=== PATIENT | female | born 1995 | race Caucasian/White ===

== ENCOUNTER 2018-03-06 05:53 | Observation (INO) | payer OTHER, SELFPAY ==
[2018-03-06] VITALS (20 sets, daily range): BP systolic 104–155; BP diastolic 63–105; PULSE 16–145; RESP 9–24; TEMP 36.2–36.9; O2SAT 93–100; BMI 45.8
--- NOTE | 2018-03-06 | PATH_ITS ---
[facility] Accession Number: [id number] . 01 Material submitted: . GALLBLADDER . 02 Diagnosis: Gallbladder: Cholelithiasis with associated chronic cholecystitis and cholesterolosis. Benign reactive lymph node. [facility]/03/10/2018 . 02 Electronically signed: . Miguel Ángel Alcala MD, Pathologist NPI- [id number] . 01 Gross description: . Received in formalin, labeled gallbladder, is an intact gallbladder (length-7.6 cm, diameter-2.2 cm) with a purple-pink smooth and shiny serosa and a patent cystic duct. A lymph node (0.8 x 0.7 x 0.6 cm) is identified. The lumen contains green gelatinous bile and one green-yellow smooth and solid calculus (1.6 x 1.3 x 1.2 cm) with an janes crystalline cut surface. The mucosa is spence-yellow and semi-velvety. The wall is up to 0.2 cm thick. No nodules, masses or lesions are identified. Section code: (A1) cystic duct resection margin and two serial sections from the body; (A2) two longitudinal sections from the fundus; (A3) one bisected lymph node. ([id number]) /[facility] . 02 Pathologist provided ICD-10: K80.64 . 02 CPT . 916977 Performed at: 01 [facility] [address], [place], [place] [id number] MD Wilver Zazueta MD Phone: [phone] Performed at: 02 [facility] [address] [place], [place] [id number] MD Sloan Maciel MD Phone: [phone]
--- NOTE | 2018-03-06 06:20 | ED.ABDPAIN ---
HPI - Abdominal Pain General Chief Complaint: Abdominal Pain Stated Complaint: MIDDLE STOMACH PAIN' Time Seen by Provider: 03/06/18 06:09 Source: patient and family Mode of arrival: ambulatory Limitations: no limitations History of Present Illness HPI narrative: Patient is a 22-year-old female presents with epigastric pain. All the it started about 1:00 a.m. quite severe she has taken Tums and Tylenol without any relief. She has had episodes of pain off and on for the last couple of years no and has been able to figure out what it is. She feels nauseated she is pacing the room and appears in pain. She says the pain radiates around both sides and up to her shoulders. Sometimes into her chest. This is the worst that it has ever been. She had hamburgers last night for dinner. Location: epigastric Radiation: chest Related Data Allergies Allergy/AdvReac Type Severity Reaction Status Date / Time No Known Drug Allergies Allergy Verified 03/06/18 07:17 Review of Systems Review of Systems All systems reviewed & are unremarkable except as noted in HPI and below Constitutional Denies chills, Denies fever(s), Denies lethargy and Denies weakness Cardiovascular Reports chest pain, Denies irregular heart rhythm, Denies lightheadedness, Denies palpitations, Denies dyspnea, Denies dyspnea on exertion and Denies orthopnea Respiratory Denies cough, Denies dyspnea, Denies dyspnea on exertion and Denies wheezing Gastrointestinal Gastrointestinal: Reports system reviewed and no additional complaints, except as docu Musculoskeletal Denies back pain, Denies muscle weakness, Denies numbness and Denies tingling Integumentary/Breasts Denies pruritus, Denies erythema, Denies rash and Denies wounds Neurologic Denies numbness, Denies tingling and Denies weakness Endocrine Denies palpitations Allergic/Immunologic Denies wheezing PFSH Social History Smoking Status: Never smoker Exam Initial Vital Signs Initial Vital Signs: Vital Signs Temperature 97.5 F L 03/06/18 06:01 Pulse Rate 16 L 03/06/18 06:01 Respiratory Rate 17 03/06/18 06:01 Blood Pressure 155/105 H 03/06/18 06:01 Pulse Oximetry 100 03/06/18 06:01 Const General: acute distress (In pain) Nutritional Appearance: obese Chest Chest: normal inspection of the chest Resp Effort & Inspection: normal respiratory effort, able to speak in complete sentences, no respiratory distress and no use of accessory muscles Auscultation: clear to auscultation bilaterally, no rales, no rhonchi and no wheezes Cardio Rate: regular rate Rhythm: regular rhythm Heart Sounds: no click, no gallops, no murmurs and no rubs Pulses: normal peripheral pulses GI Palpation: soft, tender (Right upper quadrant pain without guarding or rebound) and other Percussion: normal to percussion Auscultation: normal bowel sounds General: No CVA tenderness Skin General: no rashes or lesions noted, No jaundice and No petechiae Neuro General: alert, oriented x3, gait normal and no focal motor deficits Cranial Nerves: CN's II-XI intact bilaterally Speech: speech normal Motor: strength 5/5 throughout Sensory Exam: no sensory deficits noted Course Hospital Course: Pain is much better controlled after Toradol. She is resting comfortably. Orders Ordered: ED Orders 03/06/18 06:15 Urinalysis and Microscopic Stat 03/06/18 06:26 US abdomen complete Stat 03/06/18 06:34 Complete Blood Count AUTO DIFF Stat Comprehensive Metabolic Panel Stat Lipase Stat Discontinued Medications Ketorolac Tromethamine (Toradol) 30 mg IV NOW ONE Stop: 03/06/18 06:26 Last Admin: 03/06/18 06:40 Dose: 30 mg Ondansetron HCl (Zofran) 4 mg IV NOW ONE Stop: 03/06/18 06:26 Last Admin: 03/06/18 06:39 Dose: 4 mg Vital Signs - 8 hr 03/06/18 06:01 03/06/18 06:21 Temperature 97.5 F L 97.5 F L Pulse Rate 16 L 16 L Respiratory Rate 17 17 Blood Pressure 155/105 H 155/105 H Pulse Oximetry 100 100 MDM - Abdominal Pain Lab Data Result diagrams: 03/06/18 06:34 03/06/18 06:34 Lab Results 03/06/18 03/06/18 03/06/18 Range/Units 06:15 06:34 06:34 WBC 11.1 H (4.5-11.0) X10^3/uL RBC 5.20 (4.0-5.2) X10^6/uL Hgb 14.9 (12.0-16.0) g/dL Hct 43.1 (36-46) % MCV 83.0 (80-100) fL MCH 28.7 (26-34) PG MCHC 34.6 (30-36) % RDW 13.5 (11.6-14.8) % Plt Count 285 (150-400) X10^3/uL Neut % (Auto) 71.8 (50-75) % Lymph % (Auto) 21.3 L (25-40) % [place] % (Auto) 5.7 (3-14) % Eos % (Auto) 0.8 L (2-4) % Baso % (Auto) 0.4 (0-2) % Neut # (Auto) 8000 H (5525-5533) /uL Sodium 142 (137-145) mmol/L Potassium 3.5 (3.4-5.1) mmol/L Chloride 101.0 (98-107) mmol/L Carbon Dioxide 27.0 (22-32) mmol/L BUN 8.0 (7-17) mg/dL Creatinine 0.80 (0.52-1.04) mg/dL Estimated GFR > 60.0 (>60) mL/min BUN/Creatinine Ratio 10.0 (6-22) Glucose 110 H (70-100) mg/dL Calcium 10.0 (8.4-10.2) mg/dL Total Bilirubin 0.5 (0.2-1.3) mg/dL AST 24 (14-36) IU/L ALT 41 (9-52) IU/L Alkaline Phosphatase 72 (38-126) U/L Total Protein 7.7 (6.3-8.2) g/dL Albumin 4.5 (3.5-5.0) g/dL Globulin 3.2 (1.7-4.1) g/dL Albumin/Globulin Ratio 1.4 (1.0-2.8) Lipase 79 (23-300) U/L Urine Color Yellow Urine Appearance Clear Urine pH 6.5 (4.5-8.0) Ur Specific [place] 1.020 (1.000-1.035) Urine Protein Negative (Negative) Urine Glucose (UA) Negative (Normal) g/dL Urine Ketones Negative (NEGATIVE) Urine Occult Blood 1+ H (Negative) Urine Nitrate Negative (NEGATIVE) Urine Bilirubin Negative (NEGATIVE) Urine Urobilinogen 0.2 (0.2) E.U./dL Ur Leukocyte Esterase Negative (NEGATIVE) Urine RBC 1-5/hpf (0-5/HPF) Ur Culture Indicated? Cult not indicated Micro UA Comment Not Reportable MDM Narrative Medical decision making narrative: She has no leukocytosis elevated bilirubin or enzymes. She is noted to have gallstones in the neck. Initially on wanted to go home with pain medication and follow up with surgery as outpatient. However she made arrangements on and is now willing and able to stay. Dr. Pearce aware checking surgery schedule. Discharge Plan Departure Patient Disposition: Admitted as Observation Clinical Impression: Cholelithiasis
--- NOTE | 2018-03-06 06:26 | DI.US.S_ITS ---
PROCEDURE: US ABDOMEN INDICATIONS: RUQ pain TECHNIQUE: Real-time focused scanning was performed of the abdomen, with image documentation. COMPARISON: None. FINDINGS: Liver: Liver is normal in size. Liver has a diffusely increased echotexture which typically represents fatty infiltration; however, finding is nonspecific and other etiologies including hepatic cirrhosis can have a similar appearance. Please correlate with clinical and laboratory findings. Gallbladder: Multiple large gallstones are noted. No gallbladder wall thickening. Gallbladder wall measures 2.0 mm. No pericholecystic fluid. Positive sonographic Acosta sign noted. Common bile duct is at the upper limits of normal measuring 6.3 mm in diameter. Pancreas: Sonographically normal. Spleen: Normal in size and echotexture. Kidneys: Right kidney measures 9.7 cm and left kidney measures 10.6 cm in longitudinal axis. Kidneys are sonographically normal without evidence of hydronephrosis or nephrolithiasis. Aorta: Normal in caliber. Common iliacs: Normal in caliber. IVC: Patent. IMPRESSION: 1. Cholelithiasis with positive sonographic Acosta's sign. Early manifestation of cholecystitis cannot be excluded. 2. Echogenic liver. Finding typically represents fatty infiltration; however, finding is nonspecific and correlation with clinical and laboratory findings is recommended to exclude other etiologies including hepatic cirrhosis. Dictated by: Jenni Castañeda MD, PhD on 03/06/2018 at 9:03 Approved by: Jenni Castañeda MD, PhD on 03/06/2018 at 9:06
[2018-03-06 06:33] LABS: Appearance Urine UA CLEAR; Bilirubin Urine UA NEGATIVE (NEGATIVE); Color Urine UA YELLOW; Glucose Urine UA NEGATIVE (Normal); Ketones Urine UA NEGATIVE (NEGATIVE); Leukocyte Esterase Urine UA NEGATIVE (NEGATIVE); Nitrite Urine UA NEGATIVE (NEGATIVE); Occult Blood Urine UA 1+ (Negative); Protein Urine UA NEGATIVE (Negative); Urobilinogen Urine UA 0.2 E.U./dL (0.2); pH Urine UA 6.5 (4.5-8.0)
[2018-03-06] MEDS: ONDANSETRON 4 MG/2 ML INJ IV (06:39)
[2018-03-06] MEDS: KETOROLAC 60 MG/2 ML VIAL 30 MG IV (06:40)
[2018-03-06 06:47] LABS: Culture Indicated Urine Cult Not Indicated; RBC Urine 1-5/HPF (0-5/HPF)
[2018-03-06 06:52] LABS: Add Manual Diff / Slide Review NO; Basophils Percent Auto 0.4 % (0-2); Eosinophils Percent Auto 0.8 % (2-4); Hematocrit 43.1 % (36-46); Hemoglobin 14.9 g/dL (12.0-16.0); Lymphocytes Percent Auto 21.3 % (25-40); Mean Corpuscular HGB Conc 34.6 % (30-36); Mean Corpuscular Hemoglobin 28.7 PG (26-34); Monocytes Percent Auto 5.7 % (3-14); Neutrophils Absolute Auto 8000 /uL (3000-5900); Neutrophils Percent Auto 71.8 % (50-75); Platelet Count 285 X10^3/uL (150-400); Red Cell Distribution Width 13.5 % (11.6-14.8); White Blood Cell Count 11.1 X10^3/uL (4.5-11.0)
[2018-03-06 06:55] LABS: Alanine Aminotransferase 41 IU/L (9-52); Albumin 4.5 g/dL (3.5-5.0); Albumin Globulin Ratio 1.4 (1.0-2.8); Alkaline Phosphatase 72 U/L (38-126); Aspartate Aminotransferase 24 IU/L (14-36); Bilirubin Total 0.5 mg/dL (0.2-1.3); Estimated Glomerular Filt Rate > 60.0 mL/min (>60); Globulin 3.2 g/dL (1.7-4.1); Glucose 110 mg/dL (70-100); HEMOLYSIS < 15 (0-50); Lipase 79 U/L (23-300); Potassium 3.5 mmol/L (3.4-5.1); Sodium 142 mmol/L (137-145); Total Protein 7.7 g/dL (6.3-8.2)
[2018-03-06] MEDS: SODIUM CHLORIDE 0.9% 1,000 ML 125 ML IV (10:21)
--- NOTE | 2018-03-06 10:43 | PC.NURSE ---
ADMISSION NOTE: PT WHEELCHAIRED OVER FROM ED WITH SPOUSE, KASEY IN ATTENDANCE- VSS, AFEBRILE, ALERT/ORIENTED AND ANXIOUS- BOTH HAD MANY QUESTIONS AND ANSWERED THEM ALL TO THE BEST OF MY ABILITY - THE REST WILL BE LEFT FOR DR. BOB. HER LUNGS ARE CLEAR AND SHE IS VOIDING WELL- DENIES PAIN OR NAUSEA, REPORTING THAT PREVIOUS DOSED TORADOL ( IN ED) WAS EFFECTIVE FOR PAIN CONTROL- NPO STATUS. NS INFUSING AT 125CC/H
--- NOTE | 2018-03-06 16:44 | PM.HP.1 ---
History of Present Illness Chief complaint: MIDDLE STOMACH PAIN' Narrative: Veda Ybarra is a 22 year old female She has been having intermittent epigastric pains rarely accompanied by vomiting but often accompanied by nausea. She has about once a week. Usually spontaneously goes away. She has not noted any specific precipitating or alleviating factors. She has never had any hematemesis. She was seen in the emergency room found to have gallstones and I was asked to treat her. At the time I saw her this morning she was pain free after IV pain medication. [facility] Family History Mother Cancer, Onset Age: 48 Social History household members: spouse Smoking Status: Never smoker alcohol intake: never Meds Home Medications Medication Instructions Recorded Confirmed Type norethindrone ac-eth estradiol 1 tab PO QHS 03/06/18 03/06/18 History [Microgestin 11/09 (21)] ranitidine HCl [Zantac Maximum 150 mg PO QHS 03/06/18 03/06/18 History Strength] venlafaxine [Effexor XR] 75 mg PO DAILY 03/06/18 03/06/18 History Generic Name Dose Route Start Last Admin Trade Name Freq PRN Reason Stop Dose Admin Sodium Chloride 1,000 mls @ 125 mls/hr 03/06/18 08:37 03/06/18 10:21 Normal Saline 0.9% IV 125 mls/hr CONT AL Administration Allergies Allergy/AdvReac Type Severity Reaction Status Date / Time No Known Drug Allergies Allergy Verified 03/06/18 16:39 Review of Systems Review of Systems All systems reviewed & are unremarkable except as noted in HPI and below Psychiatric Comments: Taking an antidepressant. Exam Vital Signs (past 8 hours): Vital Signs - 8 hr 03/06/18 16:13 03/06/18 16:41 Temperature 97.6 F Pulse Rate 130 H 145 H Respiratory Rate 20 24 Blood Pressure 141/91 H 131/86 H Pulse Oximetry 100 100 Pulse Oximetry 100 Oxygen Delivery Method Room Air Narrative Exam Narrative: Obese pleasant woman in no apparent distress. Skin without lesions. Eyes nonicteric pupils equal round reactive to like conjunctivae are pink. He is without lesion. Nasal septum is midline. No polyps. Oral mucosa is dry without open lesion. Teeth are intact. No splits her lips. No nodes in the neck. There are no masses in the neck thyroid is not enlarged. There are no bruits in the neck her lungs are clear to auscultation without rales or rhonchi randee would percussion. Heart regular rate and rhythm without murmur or gallop. Abdomen is markedly particular current soft. There are no palpable masses. No hernias appreciated. Liver and spleen are not enlarged. She is nontender at this time. She is alert and oriented x3. Speech rate contents are appropriate. Affect is appropriate. Reflexes are 3+ biceps forearm and patellar. Extraocular movements are intact, tongue midline , face is symmetric. Uvula elevates in the midline. Objective Labs Result Diagrams: 03/06/18 06:34 03/06/18 06:34 Labs: Laboratory Results - last 24 hr 03/06/18 03/06/18 03/06/18 06:15 06:34 06:34 WBC 11.1 H RBC 5.20 Hgb 14.9 Hct 43.1 MCV 83.0 MCH 28.7 MCHC 34.6 RDW 13.5 Plt Count 285 Neut % (Auto) 71.8 Lymph % (Auto) 21.3 L [place] % (Auto) 5.7 Eos % (Auto) 0.8 L Baso % (Auto) 0.4 Neut # (Auto) 8000 H Sodium 142 Potassium 3.5 Chloride 101.0 Carbon Dioxide 27.0 BUN 8.0 Creatinine 0.80 Estimated GFR > 60.0 BUN/Creatinine Ratio 10.0 Glucose 110 H Calcium 10.0 Total Bilirubin 0.5 AST 24 ALT 41 Alkaline Phosphatase 72 Total Protein 7.7 Albumin 4.5 Globulin 3.2 Albumin/Globulin Ratio 1.4 Lipase 79 Urine Color Yellow Urine Appearance Clear Urine pH 6.5 Ur Specific [place] 1.020 Urine Protein Negative Urine Glucose (UA) Negative Urine Ketones Negative Urine Occult Blood 1+ H Urine Nitrate Negative Urine Bilirubin Negative Urine Urobilinogen 0.2 Ur Leukocyte Esterase Negative Urine RBC 1-5/hpf Ur Culture Indicated? Cult not indicated Micro UA Comment Not Reportable Nasal Screen MRSA (PCR) 03/06/18 12:51 WBC RBC Hgb Hct MCV MCH MCHC RDW Plt Count Neut % (Auto) Lymph % (Auto) [place] % (Auto) Eos % (Auto) Baso % (Auto) Neut # (Auto) Sodium Potassium Chloride Carbon Dioxide BUN Creatinine Estimated GFR BUN/Creatinine Ratio Glucose Calcium Total Bilirubin AST ALT Alkaline Phosphatase Total Protein Albumin Globulin Albumin/Globulin Ratio Lipase Urine Color Urine Appearance Urine pH Ur Specific [place] Urine Protein Urine Glucose (UA) Urine Ketones Urine Occult Blood Urine Nitrate Urine Bilirubin Urine Urobilinogen Ur Leukocyte Esterase Urine RBC Ur Culture Indicated? Micro UA Comment Nasal Screen MRSA (PCR) Negative for mrsa Assessment & Plan Plan: Plan: Obese woman with an ultrasound showing gallstones without dilated duct. There is a stone in the neck of the gallbladder. She has been intermittently symptomatic for a prolonged period of months. [place] her about the nature of the operation risks of bleeding, infection, hernia, injury to internal organs or duct which would require a major operation to repair, bile leakage and the potential need to do an ERCP. All questions were answered. She understands intraoperative findings may change my plan. She wishes to proceed Quality VTE Deep Vein Thrombosis/Pulmonary Embolism Present on Admission: No
--- NOTE | 2018-03-06 16:54 | PM.PREOP ---
Pre-operative Note Interval Note Pre-op Check: History & Physical exam performed today H&P completed within 30 days and has changed as indicated here:: No change
[2018-03-06] MEDS: LACTATED RINGERS 1,000 ML 100 ML IV ×2 (17:12→21:11)
[2018-03-06] MEDS: CEFAZOLIN 2 GM/100 ML FROZ.PIGGY IV (17:13)
[2018-03-06] MEDS: MIDAZOLAM 2 MG/2 ML VIAL IV (17:18)
[2018-03-06] MEDS: BUPIVACAINE 0.5% (PF) 30 ML VIAL INJ (18:07)
--- NOTE | 2018-03-06 18:10 | SUR.OPER ---
NEW SRI TOWER AND INSUFFLATOR USED
--- NOTE | 2018-03-06 18:56 | PM.OP.1 ---
Operative Date/Time/Diagnoses - Date of procedure: 03/06/18 Time of procedure: 18:57 Pre-op diagnosis: Cholelithiasis abdominal pain Post-op diagnosis: same (Cholelithiasis chronic cholecystitis) Procedure & Clinicians Procedure: Laparoscopic cholecystectomy Same procedure as scheduled: Yes Indications: Gallstones with pain Surgeon: Ryley Pearce Anesthesia Type: General Operative Notes Findings: Small whitish thickened gallbladder with a large node at the end of it and 1 large stone Closure Type: primary Specimen(s): other (Gallbladder and lymph node attached to it) Implants & Drains: None Estimated Blood Loss (mL): 10 Procedure in detail: The patient was placed supine on the operating room table and underwent general endotracheal anesthesia. There prepped and draped in the usual fashion. Local anesthetic was infiltrated beneath the umbilicus and an incision made in the supraumbilical fold. It was carried down to the level of the peritoneum which was opened under direct vision. Stay sutures of 0 Polysorb were placed in the fascia. And ann cannula was inserted and the abdomen was insufflated. The patient was repositioned and local anesthetic was infiltrated again beneath the right costal margin and 3 small 5 mm ports were inserted. The gallbladder was identified and grasped and elevated. Dissection was begun at its in. A ductal structure that was singular nature going directly the gallbladder was identified and from surrounding structures. Immediately adjacent appeared to be a blood vessel which was out from the duct. Three clips were placed across each of these structures and they were divided leaving 2 in the patient. There appeared to be the a posterior vessel as well and 3 clips were placed on it and it was divided leaving 2 in the patient. The gallbladder was then dissected from its bed in the liver. Meticulous hemostasis was achieved. The gallbladder was detached and removed without difficulty through the umbilical port. The right upper quadrant irrigated and suctioned free of fluid. There was no ongoing bleeding and no visible bile leakage. The ports were all removed. The stay sutures at the umbilicus were tied and 2 additional sutures of 2 0 [place] were placed above in between the other stitches. The wounds were irrigated in 4 0 Polysorb was used to close the skin in all areas. Mastisol and Steri-Strips were applied and patient was awakened and taken to recovery room extubated in good condition Complications: none Condition: stable Disposition: PACU Plan for aftercare: Follow-up in the office
[2018-03-06] MEDS: fentaNYL 100 MCG/2 ML INJ 50 MCG IV ×2 (19:02→19:10)
--- NOTE | 2018-03-06 19:33 | SUR.PHASEI ---
REPORT CALLED TO FLORES GAY AT 1720. PT IN STABLE CONDITION, VSS. IV SITE CLEAR AND INFUSING WITHOUT DIFFICULTLY. DRSG TO ABD OBSERVED TO BE C/D/I. PT TOLERATING ORAL INTAKE WITHOUT ANY DIFFICULTLY. PT DENIES ANY NAUSEA. PT STATES PAIN LEVEL IS TOLERABLE AND COLD COMPRESS TO SURGICAL SITE. PT RESTING IN BED WITH EYES CLOSED AND APPEARED COMFORTABLE. PT TRANSFERED TO ICU. PT AT BEDSIDE. BEDSIDE REPORT GIVEN TO FLORES GAY. PT TRANSFERED TO FLORES GAY IN STABLE CONDITION.
[2018-03-06] MEDS: MORPHINE 10 MG/ML INJ 6 MG IV (20:05)
[2018-03-07 06:31] VITALS: BP 125/48; PULSE 97; RESP 16; TEMP 36.6; O2SAT 96
[2018-03-07 08:10] VITALS: BP 127/77; PULSE 89; RESP 16; TEMP 36.6; O2SAT 95
[2018-03-07] MEDS: VENLAFAXINE ER 75 MG CAP PO (08:22)
[2018-03-07] MEDS: SODIUM CHLORIDE 0.9% FLUSH 10 ML IV (08:42)
[2018-03-07] MEDS: OXYCODONE/ACETAMINOPHEN 5/325 TABLET 2 TAB PO (10:01)
[2018-03-07 11:00] VITALS: BMI 45.8
--- NOTE | 2018-03-07 13:11 | PM.DS.1 ---
History of Present Illness Chief complaint: MIDDLE STOMACH PAIN' Narrative: Veda Ybarra is a 22 year old female She developed abdominal pain in the epigastrium accompanied by nausea. This has been happening about once a week for a prolonged period. She was found to have a stone in the neck of her gallbladder on ultrasound. She underwent a laparoscopic cholecystectomy late the evening of admission and did quite well. She was discharged the following day on a general diet and [place] for pain to follow up in the office in about 10-14 days. Diagnosis 1 cholelithiasis with chronic cholecystitis no evidence of obstruction of the common bile duct 2 anxiety disorder 3 morbid obesity with a BMI of 46 kilograms/meter squared Discharge Providers Date of admission: 03/06/18 07:47 Discharge provider: Ryley Pearce MD Summary Discharge Diagnosis (1) Cholelithiasis with chronic cholecystitis: Status: Acute (2) Anxiety disorder: Status: Acute Time Spent with Patient Total time spent providing and/or coordinating discharge services: Exam Vital Signs (past 8 hours): Vital Signs - 8 hr 03/07/18 06:31 03/07/18 08:10 Temperature 97.8 F 97.9 F Pulse Rate 97 H 89 Respiratory Rate 16 16 Blood Pressure 125/48 H 127/77 H Pulse Oximetry 96 95 Pulse Oximetry 95 Oxygen Delivery Method Room Air Oxygen Flow Rate 0 Narrative Exam Narrative: Operative no apparent distress. Good respiratory effort with clear lungs. Abdomen is protuberant but soft. Band-aids are intact and dry. No evidence of cellulitis. Tolerating p.o. well. Objective Labs Result Diagrams: 03/06/18 06:34 03/06/18 06:34 Labs: Laboratory Results - last 24 hr 03/06/18 12:51 Nasal Screen MRSA (PCR) Negative for mrsa Discharge Plan Discharge Plan Patient Disposition: Home, Self-Care Discharge Med Rec/Prescriptions Follow up/Referrals: Ryley Pearce MD [Physician] - Provider Discharge Instructions Diet: Diet as Tolerated Activity comment: No driving until pain free of medication Cold/Heat Therapy: Apply ice as needed for comfort Wound Care Dressing: May remove dressing in 48 hours and shower Discharge Data Attending Provider: Ryley Pearce Admit Date/Time: 03/06/18 07:47 Quality VTE Deep Vein Thrombosis/Pulmonary Embolism Present on Admission: No
== END 2018-03-07 14:10 | disposition home or self-care (01) ==
LOC: ED 07:53 → ICU 10:10 → AC 13:26 → ICU 13:41
PROVIDERS: Admitting Provider Specialist; Emergency Provider Emergency Medicine; Visit Provider Specialist
PROC: 0FT44ZZ Resection of Gallbladder, Percutaneous Endoscopic Approach (ICD-10-PCS; CPT 47562; principal; 2018-03-06 17:15)
DX: R10.9 Unspecified abdominal pain (principal); K80.10 Calculus of gallbladder with chronic cholecystitis without obstruction; E66.9 Obesity, unspecified
CPT/HCPCS: 47562; 36591; 76700; 80053; 81001; 81003; 81025; 83690; 85025; 87797; 88304; 96374; 96375; 99283; 99285; G0378; J0690; J1100; J1885; J2250; J2270; J2405; J2704; J3010

== ENCOUNTER → 2018-07-18 18:18 | Outpatient (CLI) | payer OTHER, SELFPAY ==
[2018-07-18 15:50] VITALS: BMI 45.8
--- NOTE | 2018-07-18 18:22 | DI.RAD.S_ITS ---
PROCEDURE: XR CHEST 2V INDICATIONS: Persistent cough and tachycardia TECHNIQUE: 2 views of the chest were acquired. COMPARISON: None. FINDINGS: Surgical changes and devices: None. Lungs and pleura: No pleural effusions or pneumothorax. Lungs are clear. Mediastinum: Mediastinal contours are normal. Heart size is normal. Bones and chest wall: No suspicious bony abnormalities. Soft tissues appear unremarkable. IMPRESSION: No acute cardiopulmonary disease. Dictated by: Maycol Marcano M.D. on 07/18/2018 at 19:10 Approved by: Maycol Marcano M.D. on 07/18/2018 at 19:11
[2018-07-18 19:08] LABS: Add Manual Diff / Slide Review NO; Basophils Percent Auto 0.5 % (0-2); Eosinophils Percent Auto 0.3 % (2-4); Hematocrit 44.9 % (36-46); Hemoglobin 15.3 g/dL (12.0-16.0); Lymphocytes Percent Auto 20.8 % (25-40); Mean Corpuscular HGB Conc 34.1 % (30-36); Mean Corpuscular Hemoglobin 28.8 PG (26-34); Mean Corpuscular Volume 84.5 fL (80-100); Monocytes Percent Auto 4.1 % (3-14); Neutrophils Absolute Auto 12400 /uL (3000-5900); Neutrophils Percent Auto 74.3 % (50-75); Platelet Count 358 X10^3/uL (150-400); Red Blood Cell Count 5.31 X10^6/uL (4.0-5.2); Red Cell Distribution Width 13.2 % (11.6-14.8); White Blood Cell Count 16.6 X10^3/uL (4.5-11.0)
[2018-07-18 19:23] LABS: D Dimer 228 ng/mL (<230)
[2018-07-18 19:28] LABS: Alanine Aminotransferase 38 IU/L (9-52); Albumin 4.5 g/dL (3.5-5.0); Albumin Globulin Ratio 1.3 (1.0-2.8); Alkaline Phosphatase 92 U/L (38-126); Aspartate Aminotransferase 25 IU/L (14-36); BUN Creatinine Ratio 11.3 (6-22); Bilirubin Total 0.8 mg/dL (0.2-1.3); Blood Urea Nitrogen 9 mg/dL (7-17); Calcium 9.8 mg/dL (8.4-10.2); Carbon Dioxide 25 mmol/L (22-32); Chloride 104 mmol/L (98-107); Estimated Glomerular Filt Rate > 60.0 mL/min (>60); Globulin 3.5 g/dL (1.7-4.1); Glucose 93 mg/dL (70-100); HEMOLYSIS < 15 (0-50); Potassium 3.7 mmol/L (3.4-5.1); Sodium 143 mmol/L (137-145)
== END ==
PROVIDERS: PCP Physician Assistant Medical; Visit Provider Physician Assistant
DX: R05 Cough (principal); R00.0 Tachycardia, unspecified
CPT/HCPCS: 36415; 71046; 80053; 85025; 85379

== ENCOUNTER 2018-07-25 21:34 | Emergency (ER) | payer OTHER, SELFPAY ==
[2018-07-18 15:50] VITALS: BMI 45.8
[2018-07-25 21:49] VITALS: BP 129/89; PULSE 120; RESP 20; TEMP 37.1; O2SAT 95; BMI 44.9
[2018-07-25 22:00] VITALS: BP 144/90; PULSE 116; RESP 15; O2SAT 98
--- NOTE | 2018-07-25 22:27 | DI.RAD.S_ITS ---
PROCEDURE: XR CHEST 2V INDICATIONS: Cough and tachycardia TECHNIQUE: 2 views of the chest were acquired. COMPARISON: [facility], CT, CT ANGIO CHEST PE PROTOCOL, 07/25/2018, 23:23. [facility], CR, XR CHEST 2V, 07/18/2018, 18:02. FINDINGS: Surgical changes and devices: None. Lungs and pleura: No pleural effusions or pneumothorax. Lungs are clear. Mediastinum: Mediastinal contours are normal. Heart size is normal. Bones and chest wall: No suspicious bony abnormalities. Soft tissues appear unremarkable. IMPRESSION: 1. No acute cardiopulmonary disease. Dictated by: Wilver Chen M.D. on 07/26/2018 at 10:55 Approved by: Wilver Chen M.D. on 07/26/2018 at 10:56
[2018-07-25 22:39] LABS: Add Manual Diff / Slide Review NO; Basophils Percent Auto 0.5 % (0-2); Eosinophils Percent Auto 1.6 % (2-4); Hematocrit 43.6 % (36-46); Hemoglobin 15.1 g/dL (12.0-16.0); Lymphocytes Percent Auto 19.7 % (25-40); Mean Corpuscular HGB Conc 34.7 % (30-36); Mean Corpuscular Hemoglobin 29.5 PG (26-34); Mean Corpuscular Volume 85.1 fL (80-100); Monocytes Percent Auto 9.2 % (3-14); Neutrophils Absolute Auto 6700 /uL (3000-5900); Platelet Count 337 X10^3/uL (150-400); Red Blood Cell Count 5.13 X10^6/uL (4.0-5.2); Red Cell Distribution Width 13.4 % (11.6-14.8); White Blood Cell Count 9.8 X10^3/uL (4.5-11.0)
[2018-07-25 22:46] LABS: BUN Creatinine Ratio 14.4 (6-22); Blood Urea Nitrogen 13 mg/dL (7-17); Calcium 9.7 mg/dL (8.4-10.2); Carbon Dioxide 29 mmol/L (22-32); Chloride 102 mmol/L (98-107); Estimated Glomerular Filt Rate > 60.0 mL/min (>60); Glucose 99 mg/dL (70-100); HEMOLYSIS < 15 (0-50); Lactate (Lactic Acid) 1.3 mmol/L (0.7-2.1); Sodium 142 mmol/L (137-145)
[2018-07-25 23:00] LABS: Procalcitonin < 0.05 ng/mL (<0.5)
--- NOTE | 2018-07-25 23:12 | ED_ITS ---
HPI - URI/Sore Throat General Chief Complaint: Upper Respiratory Symptoms Stated Complaint: cough,wheezing hard to catch breath Time Seen by Provider: 07/25/18 22:14 Source: patient Mode of arrival: ambulatory Limitations: no limitations History of Present Illness HPI Narrative: Patient is a otherwise healthy 22-year-old female here for evaluation approximately 3 weeks of sinus congestion, fevers, sore throat, cough , wheezing. She states this all started when she was in [place] 3 weeks ago. She has been seen multiple times at Urgent cares for this. States that she did complete a course of azithromycin prescribed by an outside provider for this. Had a chest x-ray last week for these symptoms. Did take 1 24 hr sinus congestion medication last evening. Is not on any other medications for the symptoms. Related Data Home Medications Medication Instructions Recorded Confirmed norethindrone ac-eth estradiol 1 tab PO QHS 03/06/18 07/25/18 [Microgestin 11/09 (21)] venlafaxine 150 mg PO DAILY 07/25/18 07/25/18 Previous Rx's Medication Instructions Recorded albuterol sulfate 1 puff INHALATION Q4-6H PRN #18 07/26/18 gram doxycycline monohydrate 100 mg PO BID #14 cap 07/26/18 fluticasone [Flonase Allergy 1 spray NASAL DAILY #16 gram 07/26/18 Relief] Allergies Allergy/AdvReac Type Severity Reaction Status Date / Time No Known Drug Allergies Allergy Verified 07/18/18 18:03 Review of Systems Constitutional Reports fatigue, Reports fever(s) and Denies headache(s) ENT Ears, Nose, Mouth, and Throat: Denies vertigo, Denies dizziness, Denies headache (s), Reports nasal congestion, Reports nasal discharge, Reports sinus pain, Reports sinus pressure and Reports sore throat Cardiovascular Denies chest pain and Reports dyspnea Respiratory Reports cough, Reports dyspnea and Reports wheezing Gastrointestinal Gastrointestinal: Denies abdominal pain, Reports nausea and Reports vomiting Genitourinary Denies dysuria Musculoskeletal Denies myalgias and Denies arthralgias Integumentary/Breasts Denies lesions and Denies rash Neurologic Denies vertigo, Denies dizziness and Denies headache(s) Endocrine Reports fatigue Hematologic/Lymphatic Denies easy bleeding and Denies easy bruising Allergic/Immunologic Reports wheezing [facility] Medical History Healthy adult (Acute) Surgical History No pertinent past surgical history (Acute) Family History Mother Cancer, Onset Age: 48 Social History household members: spouse Smoking Status: Never smoker alcohol intake: never Exam Initial Vital Signs Initial Vital Signs: Vital Signs Temperature 98.7 F 07/25/18 21:49 Pulse Rate 120 H 07/25/18 21:49 Respiratory Rate 20 07/25/18 21:49 Blood Pressure 129/89 07/25/18 21:49 Pulse Oximetry 95 07/25/18 21:49 Const General: cooperative, comfortable, well developed, well groomed and No acute distress Orientation: alert, awake and oriented x3 HENMT Head: normal to inspection and normocephalic Resp Effort & Inspection: normal respiratory pattern, respiratory effort not decreased, no grunting, not labored, no nasal flaring, no respiratory distress, no retractions, tachypneic, no use of accessory muscles and No prolonged expiratory phase Auscultation: clear to auscultation bilaterally Cardio Rate: tachycardic Rhythm: regular rhythm Heart Sounds: no murmurs Pulses: radial pulses present GI Inspection: non-distended Palpation: soft, No firm and No tender Skin Lesions: no lesions Rashes: no rashes Neuro General: alert, awake and oriented x3 Extrem General: normal to inspection and capillary refill normal Psych Appearance: grossly normal and well kempt Course Orders Ordered: ED Orders 07/25/18 22:10 Basic Metabolic Panel Stat Complete Blood Count AUTO DIFF Stat Lactate (Lactic Acid) Stat Test Serum,Qual Stat Procalcitonin Stat 07/25/18 22:27 XR chest 2V Stat 07/25/18 23:21 CT angio chest PE protocol Stat Vital Signs - 8 hr 07/25/18 21:49 07/25/18 22:00 07/26/18 01:10 Temperature 98.7 F Pulse Rate 120 H 116 H 114 H Respiratory Rate 20 15 12 Blood Pressure 129/89 Blood Pressure [Right Arm] 144/90 H 123/81 Pulse Oximetry 95 98 95 07/26/18 01:52 Temperature 100 F H Pulse Rate 116 H Respiratory Rate 18 Blood Pressure 127/82 Blood Pressure [Right Arm] Pulse Oximetry 96 MDM - URI/Sore Throat Lab Data Attestation: I reviewed the patient's lab results. Result diagrams: 07/25/18 22:10 07/25/18 22:10 Lab Results 07/25/18 07/25/18 07/25/18 Range/Units 22:10 22:10 22:10 WBC 9.8 (4.5-11.0) X10^3/uL RBC 5.13 (4.0-5.2) X10^6/uL Hgb 15.1 (12.0-16.0) g/dL Hct 43.6 (36-46) % MCV 85.1 (80-100) fL MCH 29.5 (26-34) PG MCHC 34.7 (30-36) % RDW 13.4 (11.6-14.8) % Plt Count 337 (150-400) X10^3/uL Neut % (Auto) 69.0 (50-75) % Lymph % (Auto) 19.7 L (25-40) % [place] % (Auto) 9.2 (3-14) % Eos % (Auto) 1.6 L (2-4) % Baso % (Auto) 0.5 (0-2) % Neut # (Auto) 6700 H (1287-0532) /uL Sodium 142 (137-145) mmol/L Potassium 4.0 (3.4-5.1) mmol/L Chloride 102 (98-107) mmol/L Carbon Dioxide 29 (22-32) mmol/L BUN 13 (7-17) mg/dL Creatinine 0.90 (0.52-1.04) mg/dL Estimated GFR > 60.0 (>60) mL/min BUN/Creatinine Ratio 14.4 (6-22) Glucose 99 (70-100) mg/dL Lactate (0.7-2.1) mmol/L Calcium 9.7 (8.4-10.2) mg/dL Procalcitonin < 0.05 (<0.5) ng/mL Serum , Qual (Negative) 07/25/18 07/25/18 Range/Units 22:10 22:10 WBC (4.5-11.0) X10^3/uL RBC (4.0-5.2) X10^6/uL Hgb (12.0-16.0) g/dL Hct (36-46) % MCV (80-100) fL MCH (26-34) PG MCHC (30-36) % RDW (11.6-14.8) % Plt Count (150-400) X10^3/uL Neut % (Auto) (50-75) % Lymph % (Auto) (25-40) % [place] % (Auto) (3-14) % Eos % (Auto) (2-4) % Baso % (Auto) (0-2) % Neut # (Auto) (5137-2006) /uL Sodium (137-145) mmol/L Potassium (3.4-5.1) mmol/L Chloride (98-107) mmol/L Carbon Dioxide (22-32) mmol/L BUN (7-17) mg/dL Creatinine (0.52-1.04) mg/dL Estimated GFR (>60) mL/min BUN/Creatinine Ratio (6-22) Glucose (70-100) mg/dL Lactate 1.3 (0.7-2.1) mmol/L Calcium (8.4-10.2) mg/dL Procalcitonin (<0.5) ng/mL Serum , Qual Negative (Negative) Imaging Data Chest x-ray: Attestation: I personally reviewed and interpreted this imaging study as follows: My impression: No focal consolidations No pneumothorax Normal size heart CT scan - chest: Radiologist's impression: Pulmonary embolus is not identified. No thoracic aortic aneurysm or dissection. No acute intrathoracic process is identified MDM Narrative Medical decision making narrative: Patient is nontoxic appearing. Was tachypneic however not hypoxic. Does not have an elevated white blood cell count. Lactate unremarkable. Procalcitonin is unremarkable. Has been on a course of antibiotics several weeks ago for the symptoms. I did do a CT scan of her chest secondary to her persistent tachycardia despite fluids, her 3 weeks of symptoms, the lack of improvement after course of antibiotics, and the fact that all the symptoms started after she had a plane ride to [place] [address] scan does not show any signs of pulmonary embolism. Chest x-ray is nondiagnostic. Had a discussion with the patient her who is at bedside regarding her symptoms. We did discuss the importance of her being on a daily decongestant. Also discussed the importance of a daily nasal steroid. Will also send home with a prescription for an albuterol inhaler for the wheezing. We did discuss the possibility of starting a no other course of antibiotics. After this discussion we did decide to do this. Will send home with doxycycline. Informed her that she needed to contact her primary care doctor on Saturday for a follow-up. We did discuss return precautions. She expressed understanding and agreement with plan. Discharge Plan Departure Patient Disposition: Home Clinical Impression: Acute respiratory infection, Tachycardia, Cough Discharge Date/Time: 07/26/18 01:50 Interventions: ED Discharge Assessment Last Done: 07/26/18 01:52 Instructions: DI for Acute Bronchitis Activity Restrictions/Additional Instructions: Recommend that you start a decongestant such as Claritin/Breanna/Zyrtec on a daily basis. Also recommend you start the other medications you were given this evening as directed. Call your primary care doctor on Saturday for follow- up. Return to the emergency department for any new or worsening symptoms Prescriptions: New doxycycline monohydrate 100 mg capsule 100 mg PO BID Qty: 14 RF: 0 albuterol sulfate 90 mcg/actuation HFA aerosol inhaler 1 puff INHALATION Q4-6H PRN (Reason: shortness of breath or wheezing) Qty: 18 RF: 0 fluticasone [Flonase Allergy Relief] 50 mcg/actuation spray,suspension 1 spray NASAL DAILY Qty: 16 RF: 0 No Action norethindrone ac-eth estradiol [Microgestin 11/09 ()] 1-20 mg-mcg Tablet 1 tab PO QHS RF: 0 venlafaxine 75 mg capsule,extended release 24hr 150 mg PO DAILY RF: 0
--- NOTE | 2018-07-25 23:21 | DI.CT.S_ITS ---
PROCEDURE: CT ANGIO CHEST PE PROTOCOL INDICATIONS: Chest pain, shortness of breath, tachycardia TECHNIQUE: After the administration of intravenous contrast, 2 mm thick sections acquired from the pulmonary apices to the posterior costophrenic angles. 3-dimensional maximum intensity projection (MIP) coronal and sagittal reformats were then acquired through the thorax. For radiation dose reduction, the following was used: automated exposure control, adjustment of mA and/or kV according to patient size. COMPARISON: None. FINDINGS: Image quality: Excellent. Pulmonary arteries: Pulmonary arteries are normal in size, and demonstrate no intraluminal filling defects to suggest central pulmonary embolism. Lungs and pleura: No focal consolidation. There is minimal dependent atelectasis. No pleural effusions or pneumothorax. Central and peripheral airways are patent. Mediastinum: Heart size is normal, without pericardial effusion. No mediastinal or hilar adenopathy. Thoracic aorta is normal in caliber and enhancement. Esophagus is normal in caliber, without hiatal hernia. Bones and chest wall: No suspicious bony lesions. Ribs and thoracic spine appear intact throughout. No axillary or supraclavicular adenopathy. Abdomen: Visualized upper abdomen demonstrates surgical clips in the gallbladder fossa. The IMPRESSION: 1. No evidence of pulmonary embolism. Dictated by: Wilver Chen M.D. on 07/26/2018 at 9:44 Approved by: Wilver Chen M.D. on 07/26/2018 at 9:47
[2018-07-25 23:29] LABS: Pregnancy Test Serum,Qual Negative (Negative)
[2018-07-26 01:10] VITALS: BP 123/81; PULSE 114; RESP 12; O2SAT 95
[2018-07-26 01:52] VITALS: BP 127/82; PULSE 116; RESP 18; TEMP 37.7; O2SAT 96
== END 2018-07-26 01:50 | disposition home or self-care (01) ==
PROVIDERS: Emergency Provider Emergency Medicine; PCP Physician Assistant Medical
DX: J22 Unspecified acute lower respiratory infection (principal); R00.0 Tachycardia, unspecified; R05 Cough
CPT/HCPCS: 36591; 71046; 71275; 80048; 83605; 84145; 84703; 85025; 99282; 99284; Q9967

== ENCOUNTER 2021-08-05 18:30 | Emergency (ER) | payer OTHER, SELFPAY ==
[2018-07-18 15:50] VITALS: BMI 45.8
[2021-08-05 18:44] VITALS: BP 156/98; PULSE 125; RESP 15; TEMP 36.3; O2SAT 98; BMI 53.6
== END 2021-08-05 20:37 | disposition left against medical advice (07) ==
PROVIDERS: Emergency Provider Emergency Medicine; PCP Nurse Practitioner Family
CPT/HCPCS: 99281

== ENCOUNTER 2022-06-27 13:03 | Emergency (ER) | payer OTHER, SELFPAY ==
[2018-07-18 15:50] VITALS: BMI 45.8
[2022-06-27] VITALS (7 sets, daily range): BP systolic 135–151; BP diastolic 75–96; PULSE 95–117; RESP 15–23; TEMP 36.1; O2SAT 98–100; BMI 50.6
--- NOTE | 2022-06-27 13:20 | DI.RAD.S_ITS ---
PROCEDURE: XR CHEST 1V INDICATIONS: chest pain TECHNIQUE: One view of the chest was acquired. COMPARISON: CT, CT ANGIO CHEST PE PROTOCOL, 07/25/2018, 23:23. [facility], CR, XR CHEST 2V, 07/25/2018, 22:33. [facility], CR, XR CHEST 2V, 07/18/2018, 18:02. FINDINGS: Surgical changes and devices: None. Lungs and pleura: Lungs are clear. No pleural effusions or pneumothorax. Mediastinum: Mediastinal contours appear normal and unchanged. Heart size is normal. Bones and chest wall: No suspicious bony lesions. Overlying soft tissues appear unremarkable. IMPRESSION: No acute cardiopulmonary abnormality. Dictated by: Nhan Bailon M.D. on 06/27/2022 at 13:57 Approved by: Nhan Bailon M.D. on 06/27/2022 at 13:59
[2022-06-27 14:08] LABS: Add Manual Diff / Slide Review NO; Basophils Absolute Auto 0 /uL (0-100); Basophils Percent Auto 0.3 % (0-2); Eosinophils Absolute Auto 100 /uL (0-450); Eosinophils Percent Auto 0.7 % (2-4); Hematocrit 43.1 % (36-46); Hemoglobin 14.5 g/dL (12.0-16.0); Lymphocytes Absolute Auto 2400 /uL (1100-4500); Lymphocytes Percent Auto 18.9 % (25-40); Mean Corpuscular HGB Conc 33.6 % (30-36); Mean Corpuscular Hemoglobin 27.8 PG (26-34); Monocytes Absolute Auto 700 /uL (0-900); Monocytes Percent Auto 5.2 % (3-14); Neutrophils Absolute Auto 9300 /uL (1500-7000); Neutrophils Percent Auto 74.9 % (50-75); Platelet Count 301 X10^3/uL (150-400); Red Cell Distribution Width 14.2 % (11.6-14.8); White Blood Cell Count 12.4 X10^3/uL (4.5-11.0)
[2022-06-27 14:18] LABS: D Dimer 739 ng/ml (<500)
[2022-06-27 14:22] LABS: Alanine Aminotransferase 31 IU/L (<35); Albumin 4.3 g/dL (3.5-5.0); Albumin Globulin Ratio 1.2 (1.0-2.8); Alkaline Phosphatase 100 U/L (38-126); Aspartate Aminotransferase 28 IU/L (14-36); BUN Creatinine Ratio 13.3 (6-22); Bilirubin Total 0.7 mg/dL (0.2-1.3); Blood Urea Nitrogen 10 mg/dL (7-17); Calcium 9.4 mg/dL (8.4-10.2); Carbon Dioxide 26 mmol/L (22-32); Chloride 104 mmol/L (98-107); Creatine Kinase 74 U/L (30-135); Estimated Glomerular Filt Rate > 60 mL/min (>60); Globulin 3.6 g/dL (1.7-4.1); Glucose 100 mg/dL (70-100); HEMOLYSIS < 15 (0-50); Lipase 57 U/L (23-300); Magnesium 1.9 mg/dL (1.6-2.3); Potassium 3.9 mmol/L (3.4-5.1); Sodium 138 mmol/L (137-145); Total Protein 7.9 g/dL (6.3-8.2)
[2022-06-27 14:31] LABS: NT-proBNP (BNP-Adult 18+) 102 pg/mL (<125)
[2022-06-27 14:34] LABS: Troponin I < 0.012 ng/mL (0.01-0.034)
--- NOTE | 2022-06-27 14:34 | DI.CT.S_ITS ---
PROCEDURE: CT ANGIO CHEST PE PROTOCOL INDICATIONS: tachycardia, chest pain, elevated dimer TECHNIQUE: After the administration of intravenous contrast, 2 mm thick sections acquired from the pulmonary apices to the posterior costophrenic angles. 3-dimensional maximum intensity projection (MIP) coronal and sagittal reformats were then acquired through the thorax. For radiation dose reduction, the following was used: automated exposure control, adjustment of mA and/or kV according to patient size. COMPARISON: [facility], CT, CT ANGIO CHEST PE PROTOCOL, 07/25/2018, 23:23. FINDINGS: Image quality: Excellent. Pulmonary arteries: Pulmonary arteries are normal in size. There is a low-density filling defects seen within a segmental and the pulmonary arterial branch of the left lower lobe posteriorly. The Lungs and pleura: Lungs are clear. No pleural effusions or pneumothorax. Central and peripheral airways are patent. Mediastinum: Heart size is normal, without pericardial effusion. No mediastinal or hilar adenopathy. Thoracic aorta is normal in caliber and enhancement. Esophagus is normal in caliber . Small hiatal hernia. Bones and chest wall: No suspicious bony lesions. Ribs and thoracic spine appear intact throughout. Thyroid gland is within normal limits. No axillary or supraclavicular adenopathy. Abdomen: Visualized portions of the upper abdomen demonstrate a nodular hepatic contour suggestive of cirrhosis. IMPRESSION: 1. Left lower lobe pulmonary embolus. 2. Small hiatal hernia. 3. Findings suggestive of cirrhosis. Clinical correlation recommended. 3. Findings discussed with Dr. Fu on 06/27/2022 at 15:35 hours. Dictated by: Maria Eugenia Castillo M.D. on 06/27/2022 at 15:34 Approved by: Maria Eugenia Castillo M.D. on 06/27/2022 at 15:38
[2022-06-27] MEDS: SODIUM CHLORIDE 0.9% 1,000 ML 150 ML IV (15:28)
[2022-06-27 16:02] LABS: COVID19 -Nasal RAPID Negative (Negative)
--- NOTE | 2022-06-27 16:10 | ED.CHESTPAIN ---
HPI - Chest Pain General Chief Complaint: Chest Pain Stated Complaint: Chest pain Time Seen by Provider: 06/27/22 13:41 Source: patient Mode of arrival: Family Vehicle Limitations: no limitations History of Present Illness HPI narrative: This is a 26-year-old female who presents with 24 hours of left-sided chest pain which she describes as starting as a heaviness on her left side and increasing into a sharp pain today. Patient states she is felt a little sweaty today but has not any fevers or chills. She is felt little bit short of breath with exertion starting yesterday and into today. No syncope or passing out. She states pain is only on the left side on the left lower chest and radiating towards her back. Denies any nausea or vomiting. No swelling of extremities. No rash or skin changes. She is not had similar symptoms in the past. She rates it as 4-10 currently. She is not taken anything at home for pain. Patient states she takes Prozac and oral contraceptive daily, prior cholecystectomy in 2017 with a in 2019. No tobacco, alcohol or illicit other than edible THC occasionally. Patient denies any family history of cardiac, pulmonary embolic history. No long distance travel. Related Data Home Medications Medication Instructions Recorded Confirmed norethindrone acetate 1 mg-ethinyl 1 tab PO QHS 03/06/18 07/25/18 estradiol 20 mcg tablet (Microgestin) venlafaxine 75 mg capsule,extended 150 mg PO DAILY 07/25/18 07/25/18 release 24 hr Previous Rx's Medication Instructions Recorded albuterol sulfate 90 mcg/actuation 1 puff inhalation Q4-6H PRN 07/26/18 aerosol inhaler shortness of breath or wheezing #18 grams doxycycline monohydrate 100 mg 100 mg PO BID #14 caps 07/26/18 capsule fluticasone propionate 50 1 spray intranasal DAILY #16 grams 07/26/18 mcg/actuation nasal spray,suspension (Flonase Allergy Relief) rivaroxaban 15 mg (42)-20 mg (9) See Rx Instructions PO .COMPLEX 06/27/22 tablets in a starter pack (Xarelto #51 ea DVT-PE Treatment 30-Day Starter) Allergies Allergy/AdvReac Type Severity Reaction Status Date / Time No Known Drug Allergies Allergy Verified 06/27/22 13:23 Review of Systems Review of Systems ROS Unobtainable: All systems reviewed & are unremarkable except as noted in HPI and below Patient History Medical History Healthy adult Surgical History No pertinent past surgical history Family History Mother Cancer Social History household members: spouse Smoking Status: Never smoker alcohol intake: never Smoking Status: Never smoker alcohol intake frequency: holidays/special occasions only Substance Use Type: marijuana Exam Narrative Exam Narrative: GENERAL: Alert and oriented x three, HEENT: Head normocephalic, atraumatic, EOMI, pupils reactive, face symmetric, moist mucous membranes NECK: Supple, full range of motion CARDIOVASCULAR: Patient is slightly tachycardic with Regular rate and rhythm without murmurs, rubs or gallops. No JVD. RESPIRATORY: Breath sounds equal bilaterally, no wheezes rales or rhonchi. No tachypnea accessory muscle use. ABDOMEN: Soft, nontender. Normoactive bowel sounds all 4 quadrants. No guarding or rebound, rigidity, no mass : No CVA tenderness EXTREMITIES: Normal range of motion, no clubbing or edema. Neurovascularly intact. NEUROLOGICAL: Cranial nerves II through XII grossly intact. Moving all extremities. Normal gait. SKIN: Warm, dry, no petechiae, no rashes or lesions. Initial Vital Signs Initial Vital Signs: Vital Signs Temperature 97 F L 06/27/22 13:20 Pulse Rate 117 H 06/27/22 13:20 Respiratory Rate 16 06/27/22 13:20 Blood Pressure 143/96 H 06/27/22 13:20 Pulse Oximetry 99 06/27/22 13:20 Oxygen Delivery Method 06/27/22 13:20 Course Orders Ordered: ED Orders 06/27/22 13:20 XR chest 1V Stat 06/27/22 13:22 EKG-12 Lead Stat 06/27/22 13:55 BNP [NT-proBNP (BNP-Adult 18+)] Stat Complete Blood Count AUTO DIFF Stat Comprehensive Metabolic Panel Stat D Dimer Stat Lipase Stat Magnesium Stat Troponin & CK Cardiac Panel Stat 06/27/22 14:34 CT angio chest PE protocol Stat 06/27/22 15:25 COVID19 -Nasal RAPID/Pre-Proc Stat Discontinued Medications Acetaminophen (Acetaminophen 325 Mg Tablet) 975 mg PO NOW ONE Stop: 06/27/22 16:29 Last Admin: 06/27/22 17:00 Dose: 975 mg Documented By: ADI Sodium Chloride (Normal Saline 0.9%) 1,000 mls @ 150 mls/hr IV CONT AL Last Admin: 06/27/22 15:28 Dose: 150 mls/hr Documented By: OLGA Rivaroxaban (Rivaroxaban 10 Mg Tablet) 15 mg PO NOW ONE Stop: 06/27/22 16:24 Last Admin: 06/27/22 17:01 Dose: 15 mg Documented By: ADI Vital Signs Vital signs: Vital Signs - 8 hr 06/27/22 13:20 06/27/22 15:24 06/27/22 15:26 Temperature 97 F L Pulse Rate 117 H 110 H 104 H Respiratory Rate 16 15 23 Blood Pressure 143/96 H Pulse Oximetry 99 100 100 Oxygen Delivery Method Room Air 06/27/22 15:26 06/27/22 15:30 06/27/22 15:30 Temperature Pulse Rate 96 H Respiratory Rate 22 Blood Pressure 135/78 144/82 H Pulse Oximetry 100 Oxygen Delivery Method 06/27/22 16:00 06/27/22 16:00 06/27/22 16:34 Temperature Pulse Rate 96 H 110 H Respiratory Rate 17 20 Blood Pressure 151/87 H Pulse Oximetry 100 99 Oxygen Delivery Method 06/27/22 17:00 06/27/22 17:00 06/27/22 17:00 Temperature Pulse Rate 114 H 95 H Respiratory Rate 18 20 Blood Pressure 143/75 H Pulse Oximetry 99 98 Oxygen Delivery Method MDM - Chest Pain Lab Data Result diagrams: 06/27/22 13:55 06/27/22 13:55 Labs: Lab Results 06/27/22 06/27/22 06/27/22 Range/Units 13:55 13:55 13:55 WBC 12.4 H (4.5-11.0) X10^3/uL RBC 5.20 (4.0-5.2) X10^6/uL Hgb 14.5 (12.0-16.0) g/dL Hct 43.1 (36-46) % MCV 83.0 (80-100) fL MCH 27.8 (26-34) PG MCHC 33.6 (30-36) % RDW 14.2 (11.6-14.8) % Plt Count 301 (150-400) X10^3/uL Neut % (Auto) 74.9 (50-75) % Lymph % (Auto) 18.9 L (25-40) % [place] % (Auto) 5.2 (3-14) % Eos % (Auto) 0.7 L (2-4) % Baso % (Auto) 0.3 (0-2) % Neut # (Auto) 9300 H (6165-9230) /uL Lymph # (Auto) 2400 (2005-3941) /uL [place] # (Auto) 700 (0-900) /uL Eos # (Auto) 100 (0-450) /uL Baso # (Auto) 0 (0-100) /uL D-Dimer 739 H (<500) ng/ml Sodium 138 (137-145) mmol/L Potassium 3.9 (3.4-5.1) mmol/L Chloride 104 (98-107) mmol/L Carbon Dioxide 26 (22-32) mmol/L BUN 10 (7-17) mg/dL Creatinine 0.75 (0.52-1.04) mg/dL Estimated GFR > 60 (>60) mL/min BUN/Creatinine Ratio 13.3 (6-22) Glucose 100 (70-100) mg/dL Calcium 9.4 (8.4-10.2) mg/dL Magnesium 1.9 (1.6-2.3) mg/dL Total Bilirubin 0.7 (0.2-1.3) mg/dL AST 28 (14-36) IU/L ALT 31 (<35) IU/L Alkaline Phosphatase 100 (38-126) U/L Total Creatine Kinase 74 (30-135) U/L CK-MB (CK-2) TNP CK-MB (CK-2) Rel Index TNP Troponin I < 0.012 (0.01-0.034) ng/mL NT-Pro-B Natriuret Pep (<125) pg/mL Total Protein 7.9 (6.3-8.2) g/dL Albumin 4.3 (3.5-5.0) g/dL Globulin 3.6 (1.7-4.1) g/dL Albumin/Globulin Ratio 1.2 (1.0-2.8) Lipase 57 (23-300) U/L SARS-CoV-2 (PCR) (Negative) 06/27/22 06/27/22 Range/Units 13:55 15:25 WBC (4.5-11.0) X10^3/uL RBC (4.0-5.2) X10^6/uL Hgb (12.0-16.0) g/dL Hct (36-46) % MCV (80-100) fL MCH (26-34) PG MCHC (30-36) % RDW (11.6-14.8) % Plt Count (150-400) X10^3/uL Neut % (Auto) (50-75) % Lymph % (Auto) (25-40) % [place] % (Auto) (3-14) % Eos % (Auto) (2-4) % Baso % (Auto) (0-2) % Neut # (Auto) (5753-0505) /uL Lymph # (Auto) (4968-8631) /uL [place] # (Auto) (0-900) /uL Eos # (Auto) (0-450) /uL Baso # (Auto) (0-100) /uL D-Dimer (<500) ng/ml Sodium (137-145) mmol/L Potassium (3.4-5.1) mmol/L Chloride (98-107) mmol/L Carbon Dioxide (22-32) mmol/L BUN (7-17) mg/dL Creatinine (0.52-1.04) mg/dL Estimated GFR (>60) mL/min BUN/Creatinine Ratio (6-22) Glucose (70-100) mg/dL Calcium (8.4-10.2) mg/dL Magnesium (1.6-2.3) mg/dL Total Bilirubin (0.2-1.3) mg/dL AST (14-36) IU/L ALT (<35) IU/L Alkaline Phosphatase (38-126) U/L Total Creatine Kinase (30-135) U/L CK-MB (CK-2) CK-MB (CK-2) Rel Index Troponin I (0.01-0.034) ng/mL NT-Pro-B Natriuret Pep 102 (<125) pg/mL Total Protein (6.3-8.2) g/dL Albumin (3.5-5.0) g/dL Globulin (1.7-4.1) g/dL Albumin/Globulin Ratio (1.0-2.8) Lipase (23-300) U/L SARS-CoV-2 (PCR) Negative (Negative) Imaging Data CT scan - chest: Radiologist's Impression: Close Chest CTA (Signed) Maria Eugenia Castillo - 06/27/22 Chest X-Ray (Signed) Bennett Bailonn - 06/27/22 Chest CTA (Signed) Wilver Chen - 07/25/18 Chest X-Ray (Signed) Wilver Chen - 07/25/18 Chest X-Ray (Signed) Maycol Marcano - 07/18/18 EKG Rpt. 07/18/18 Abdomen Ultrasound (Signed) Jenni Castañeda - 03/06/18 [facility]?[place] [address] CT Scan Report Signed Patient: Veda Ybarra MR#: [id number] : 1995 Acct:[id number] Age/Sex: 26 / F Date of Service: 06/27/22 Loc: Accession Number: [id number] ?? Procedure: CT angio chest PE protocol Ordering Provider: Audra Fu D.O. PROCEDURE:? CT ANGIO CHEST PE PROTOCOL ? INDICATIONS:? tachycardia, chest pain, elevated dimer ? TECHNIQUE:? After the administration of intravenous contrast, 2 mm thick sections acquired from the pulmonary apices to the posterior costophrenic angles.? 3-dimensional maximum intensity projection (MIP) coronal and sagittal reformats were then acquired through the thorax.? For radiation dose reduction, the following was used:? automated exposure control, adjustment of mA and/or kV according to patient size.? ? COMPARISON:? [facility] CT, CT ANGIO CHEST PE PROTOCOL, 07/25/2018, 23:23. ? FINDINGS:? Image quality:? Excellent.? ? Pulmonary arteries:? Pulmonary arteries are normal in size.? There is a low-density filling defects seen within a segmental and the pulmonary arterial branch of the left lower lobe posteriorly.? The ? Lungs and pleura:? Lungs are clear.? No pleural effusions or pneumothorax.? Central and peripheral airways are patent.? ? Mediastinum:? Heart size is normal, without pericardial effusion.? No mediastinal or hilar adenopathy.? Thoracic aorta is normal in caliber and enhancement.? Esophagus is normal in caliber .? Small hiatal hernia.? ? Bones and chest wall:? No suspicious bony lesions.? Ribs and thoracic spine appear intact throughout.? Thyroid gland is within normal limits.? No axillary or supraclavicular adenopathy.? ? Abdomen:? Visualized portions of the upper abdomen demonstrate a nodular hepatic contour suggestive of cirrhosis. ? IMPRESSION:? 1. Left lower lobe pulmonary embolus. 2. Small hiatal hernia. 3. Findings suggestive of cirrhosis.? Clinical correlation recommended. 3. Findings discussed with Dr. Fu on 06/27/2022 at 15:35 hours. ? ? Dictated by: Maria Eugenia Castillo M.D. on 06/27/2022 at 15:34 ? ? Approved by: Maria Eugenia Castillo M.D. on 06/27/2022 at 15:38?? ECG Data Attestation: I personally reviewed and interpreted this ECG as follows: Prior ECG tracings: not available for review Interpretation: Sinus tachycardia rate of 111 ID 116 QRS 88 QTC 481. S1 Q3 T3 noted on EKG. No priors available for comparison. MDM Narrative Medical decision making narrative: This is a 26-year-old female comes emergency department with complaint of left-sided chest pain with some mild exertional dyspnea. Patient does not have any strong cardiac risk factors but is on oral contraceptives and is tachycardic. Patient has not been hypotensive throughout her stay. Ambulatory pulse ox was 100% throughout the entire length of the department. Chest x-ray and labs did not show clear changes other than elevated D-dimer. CT angio shows a left lower lobe pulmonary emboli with some ascites. Patient's PESI score is 48. Hestia score is 0 points as she has tachycardia but normal blood pressure. Patient states pain is tolerable she is open to Tylenol but defers anything stronger. Discussed outpatient treatment with oral anticoagulation, that oral contraceptives are likely cause in conjunction with BMI and possible genetic factors for causing her pulmonary emboli today. That she will need follow-up for Hematology/Oncology genetic workup and for at least 6-12 months. Patient expressed understanding. Also discussed that if her prescription is cost prohibitive that they can recontact us and we can change it to a more financially tolerable medication. Discharge Plan Departure Patient Disposition: Home Clinical Impression: Pulmonary embolism Activity Restrictions/Additional Instructions: You have been found to have a blood clot on your left side today. Please call to follow up with your physician and for refills of your medication. It is also noted to have a small amount of fluid in your abdomen. Please follow-up with your physician for recheck and further workup. They may refer you to hematology/oncology for genetic testing as well. Oral contraceptives can increase your risk of blood clotting, discuss with your physician about best options to prevent blood clots in the future. There are IUDs that are copper and do not have any estrogen. Take anticoagulant, 15 mg twice daily times 21 days, then 20 mg once daily. You will need to continue this medication for at least 6-12 months unless directed for longer by your physician. Prescription sent to [facility] in [place]. Please return for new or worsening chest pain, increasing shortness of breath, lightheadedness or passing out, persistent vomiting, new swelling in her extremities or other new or concerning changes. Prescriptions: New Xarelto DVT-PE Treat 30d Start 15 mg (42)- 20 mg (9) tablets,dose pack See Rx Instructions .ROUTE .COMPLEX Qty: 51 0RF Rx Instructions: take one-15 mg tablet twice daily for 21 days, then one-20 mg tablet once daily; must take with meal/food No Action norethindrone ac-eth estradiol [Microgestin 11/09 ()] 1-20 mg-mcg Tablet 1 tab PO QHS venlafaxine 75 mg capsule,extended release 24hr 150 mg PO DAILY doxycycline monohydrate 100 mg capsule 100 mg PO BID Qty: 14 0RF albuterol sulfate 90 mcg/actuation HFA aerosol inhaler 1 puff INHALATION Q4-6H PRN (Reason: shortness of breath or wheezing) Qty: 18 0RF fluticasone propionate [Flonase Allergy Relief] 50 mcg/actuation spray,suspension 1 spray NASAL DAILY Qty: 16 0RF Rx Instructions: administer into each nostril Referrals: Jania Ortez ARNP [Primary Care Provider] - Stand Alone Forms: Work Release Note Visit Report Forms: Patient Portal/API
[2022-06-27] MEDS: ACETAMINOPHEN 325 MG TABLET 975 MG PO (17:00)
--- NOTE | 2022-06-27 17:00 | PC.NURSE ---
Patient was able to walk around the department and to the bathroom with O2 sats remaining at 99 and above and no complaints of SOB.
[2022-06-27] MEDS: RIVAROXABAN 10 MG TABLET 15 MG PO (17:01)
== END 2022-06-27 17:26 | disposition home or self-care (01) ==
PROVIDERS: Emergency Provider Emergency Medicine; PCP Nurse Practitioner Family
DX: I26.99 Other pulmonary embolism without acute cor pulmonale (principal); Z20.822 Contact with and (suspected) exposure to COVID-19
CPT/HCPCS: 36415; 71045; 71275; 80053; 82550; 83690; 83735; 83880; 84484; 85025; 85379; 87635; 93005; 93010; 99284; C9803; Q9967

== ENCOUNTER 2022-06-29 21:00 | Emergency (ER) | payer OTHER, SELFPAY ==
[2018-07-18 15:50] VITALS: BMI 45.8
[2022-06-29 21:09] VITALS: BP 159/100; PULSE 116; RESP 22; TEMP 36.3; O2SAT 100; BMI 50.6
[2022-06-29 21:47] LABS: Add Manual Diff / Slide Review NO; Basophils Absolute Auto 0 /uL (0-100); Basophils Percent Auto 0.4 % (0-2); Eosinophils Absolute Auto 100 /uL (0-450); Eosinophils Percent Auto 0.7 % (2-4); Hematocrit 42.5 % (36-46); Hemoglobin 14.6 g/dL (12.0-16.0); Lymphocytes Absolute Auto 2800 /uL (1100-4500); Lymphocytes Percent Auto 24.5 % (25-40); Mean Corpuscular HGB Conc 34.2 % (30-36); Mean Corpuscular Hemoglobin 28.3 PG (26-34); Mean Corpuscular Volume 82.7 fL (80-100); Monocytes Absolute Auto 700 /uL (0-900); Neutrophils Absolute Auto 7700 /uL (1500-7000); Neutrophils Percent Auto 68.4 % (50-75); Platelet Count 349 X10^3/uL (150-400); Red Blood Cell Count 5.14 X10^6/uL (4.0-5.2); White Blood Cell Count 11.3 X10^3/uL (4.5-11.0)
[2022-06-29 21:55] LABS: Alanine Aminotransferase 31 IU/L (<35); Albumin 4.6 g/dL (3.5-5.0); Albumin Globulin Ratio 1.3 (1.0-2.8); Alkaline Phosphatase 96 U/L (38-126); Aspartate Aminotransferase 29 IU/L (14-36); BUN Creatinine Ratio 13.2 (6-22); Bilirubin Total 0.6 mg/dL (0.2-1.3); Blood Urea Nitrogen 10 mg/dL (7-17); Calcium 9.7 mg/dL (8.4-10.2); Carbon Dioxide 25 mmol/L (22-32); Chloride 103 mmol/L (98-107); Estimated Glomerular Filt Rate > 60 mL/min (>60); Globulin 3.6 g/dL (1.7-4.1); Glucose 101 mg/dL (70-100); HEMOLYSIS < 15 (0-50); Potassium 3.4 mmol/L (3.4-5.1); Sodium 141 mmol/L (137-145); Total Protein 8.2 g/dL (6.3-8.2)
[2022-06-29 22:01] LABS: Prothrombin Time 22.8 SECONDS (10.1-12.7)
[2022-06-29 22:03] LABS: Lipase 87 U/L (23-300); NT-proBNP (BNP-Adult 18+) 41 pg/mL (<125)
[2022-06-29 22:04] LABS: PTT Partial Thromboplastin Tim 45 SECONDS (26-36)
--- NOTE | 2022-06-29 22:27 | ED_ITS ---
HPI - General Adult General Chief complaint: Shortness of Breath/Dyspnea Stated complaint: pulmonary embolism? cough, chest pain Time Seen by Provider: 06/29/22 21:42 Source: patient Mode of arrival: Ambulatory History of Present Illness HPI narrative: Patient is a 18-year-old female who was seen here in the emergency department a couple days ago and diagnosed with a pulmonary embolism. She was started on Xarelto. Was discharged home. Has follow-up with her primary doctor scheduled in approximately 10 days from now. Comes emergency department today because she states that she now has a cough which started this morning and also some pain in the left side of her neck. The discomfort that she was having in her back is gone. She is getting short of breath what specifically on exertion. This has not changed from when she was here on Saturday this week. Denies any fevers. She is taking all of her medications as directed. Was told that if she started to have a cough that she needed to return to the emergency department which is why she is here. Related Data Home Medications Medication Instructions Recorded Confirmed norethindrone acetate 1 mg-ethinyl 1 tab PO QHS 03/06/18 07/25/18 estradiol 20 mcg tablet (Microgestin) venlafaxine 75 mg capsule,extended 150 mg PO DAILY 07/25/18 07/25/18 release 24 hr Previous Rx's Medication Instructions Recorded albuterol sulfate 90 mcg/actuation 1 puff inhalation Q4-6H PRN 07/26/18 aerosol inhaler shortness of breath or wheezing #18 grams doxycycline monohydrate 100 mg 100 mg PO BID #14 caps 07/26/18 capsule fluticasone propionate 50 1 spray intranasal DAILY #16 grams 07/26/18 mcg/actuation nasal spray,suspension (Flonase Allergy Relief) rivaroxaban 15 mg (42)-20 mg (9) See Rx Instructions PO .COMPLEX 06/27/22 tablets in a starter pack (Xarelto #51 ea DVT-PE Treatment 30-Day Starter) Allergies Allergy/AdvReac Type Severity Reaction Status Date / Time No Known Drug Allergies Allergy Verified 06/27/22 13:23 Review of Systems Constitutional Constitutional: Reports system reviewed and no additional complaints, except as documented ENT Ears, Nose, Mouth, and Throat: Reports system reviewed and no additional complaints, except as documented Cardiovascular Cardiovascular: Reports system reviewed and no additional complaints, except as documented Respiratory Respiratory: Reports as per HPI and Reports system reviewed and no additional complaints, except as documented Integumentary/Breasts Skin/Breast: Reports system reviewed and no additional complaints, except as documented Neurologic Neurologic: Reports system reviewed and no additional complaints, except as documented Hematologic/Lymphatic On Anticoagulants: No Patient History Medical History Healthy adult Surgical History No pertinent past surgical history Family History Mother Cancer Social History household members: spouse Smoking Status: Never smoker alcohol intake: never Smoking Status: Never smoker alcohol intake frequency: holidays/special occasions only Substance Use Type: marijuana Exam Initial Vital Signs Initial Vital Signs: Vital Signs Temperature 97.4 F L 06/29/22 21:09 Pulse Rate 116 H 06/29/22 21:09 Respiratory Rate 22 06/29/22 21:09 Blood Pressure 159/100 H 06/29/22 21:09 Pulse Oximetry 100 06/29/22 21:09 Oxygen Delivery Method 06/29/22 21:09 Const General: cooperative, comfortable and well developed HENMT Head: normal to inspection and normocephalic HENMT Other: Discomfort left paracervical region to palpation. Resp Effort & Inspection: normal respiratory effort Auscultation: clear to auscultation bilaterally Cardio Rate: tachycardic Rhythm: regular rhythm GI Inspection: normal to inspection Skin General: no rashes or lesions noted Neuro General: patient alert, patient awake, patient oriented x3 and moves all extremities Extrem General: normal to inspection and capillary refill normal Course Orders Ordered: ED Orders 06/29/22 21:30 BNP [NT-proBNP (BNP-Adult 18+)] Stat Complete Blood Count AUTO DIFF Stat Comprehensive Metabolic Panel Stat Lipase Stat Partial Thromboplastin Time Stat Prothrombin Time INR Stat Troponin & CK Cardiac Panel Stat 06/29/22 21:34 EKG-12 Lead Routine 06/29/22 22:27 XR chest 2V Stat Vital Signs Vital signs: Vital Signs - 8 hr 06/29/22 21:09 06/30/22 00:32 Temperature 97.4 F L Pulse Rate 116 H 101 H Respiratory Rate 22 18 Blood Pressure 159/100 H 161/78 H Pulse Oximetry 100 98 Oxygen Delivery Method Room Air Room Air Medical Decision Making Lab Data Lab results reviewed: Yes I reviewed the patient's lab results. Result diagrams: 06/29/22 21:30 06/29/22 21:30 Labs: Lab Results 06/29/22 06/29/22 06/29/22 Range/Units 21:30 21:30 21:30 WBC 11.3 H (4.5-11.0) X10^3/uL RBC 5.14 (4.0-5.2) X10^6/uL Hgb 14.6 (12.0-16.0) g/dL Hct 42.5 (36-46) % MCV 82.7 (80-100) fL MCH 28.3 (26-34) PG MCHC 34.2 (30-36) % RDW 14.0 (11.6-14.8) % Plt Count 349 (150-400) X10^3/uL Neut % (Auto) 68.4 (50-75) % Lymph % (Auto) 24.5 L (25-40) % Mclennan % (Auto) 6.0 (3-14) % Eos % (Auto) 0.7 L (2-4) % Baso % (Auto) 0.4 (0-2) % Neut # (Auto) 7700 H (0091-2420) /uL Lymph # (Auto) 2800 (2758-5483) /uL Mclennan # (Auto) 700 (0-900) /uL Eos # (Auto) 100 (0-450) /uL Baso # (Auto) 0 (0-100) /uL PT 22.8 H (10.1-12.7) SECONDS INR 2.0 H (0.9-1.3) APTT 45 H (26-36) SECONDS Sodium 141 (137-145) mmol/L Potassium 3.4 (3.4-5.1) mmol/L Chloride 103 (98-107) mmol/L Carbon Dioxide 25 (22-32) mmol/L BUN 10 (7-17) mg/dL Creatinine 0.76 (0.52-1.04) mg/dL Estimated GFR > 60 (>60) mL/min BUN/Creatinine Ratio 13.2 (6-22) Glucose 101 H (70-100) mg/dL Calcium 9.7 (8.4-10.2) mg/dL Total Bilirubin 0.6 (0.2-1.3) mg/dL AST 29 (14-36) IU/L ALT 31 (<35) IU/L Alkaline Phosphatase 96 (38-126) U/L Total Creatine Kinase (30-135) U/L CK-MB (CK-2) CK-MB (CK-2) Rel Index Troponin I (0.01-0.034) ng/mL NT-Pro-B Natriuret Pep 41 (<125) pg/mL Total Protein 8.2 (6.3-8.2) g/dL Albumin 4.6 (3.5-5.0) g/dL Globulin 3.6 (1.7-4.1) g/dL Albumin/Globulin Ratio 1.3 (1.0-2.8) Lipase (23-300) U/L 06/29/22 06/29/22 Range/Units 21:30 21:30 WBC (4.5-11.0) X10^3/uL RBC (4.0-5.2) X10^6/uL Hgb (12.0-16.0) g/dL Hct (36-46) % MCV (80-100) fL MCH (26-34) PG MCHC (30-36) % RDW (11.6-14.8) % Plt Count (150-400) X10^3/uL Neut % (Auto) (50-75) % Lymph % (Auto) (25-40) % Mclennan % (Auto) (3-14) % Eos % (Auto) (2-4) % Baso % (Auto) (0-2) % Neut # (Auto) (4192-3586) /uL Lymph # (Auto) (6826-7765) /uL Mclennan # (Auto) (0-900) /uL Eos # (Auto) (0-450) /uL Baso # (Auto) (0-100) /uL PT (10.1-12.7) SECONDS INR (0.9-1.3) APTT (26-36) SECONDS Sodium (137-145) mmol/L Potassium (3.4-5.1) mmol/L Chloride (98-107) mmol/L Carbon Dioxide (22-32) mmol/L BUN (7-17) mg/dL Creatinine (0.52-1.04) mg/dL Estimated GFR (>60) mL/min BUN/Creatinine Ratio (6-22) Glucose (70-100) mg/dL Calcium (8.4-10.2) mg/dL Total Bilirubin (0.2-1.3) mg/dL AST (14-36) IU/L ALT (<35) IU/L Alkaline Phosphatase (38-126) U/L Total Creatine Kinase 86 (30-135) U/L CK-MB (CK-2) TNP CK-MB (CK-2) Rel Index TNP Troponin I < 0.012 (0.01-0.034) ng/mL NT-Pro-B Natriuret Pep (<125) pg/mL Total Protein (6.3-8.2) g/dL Albumin (3.5-5.0) g/dL Globulin (1.7-4.1) g/dL Albumin/Globulin Ratio (1.0-2.8) Lipase 87 D (23-300) U/L Imaging Data Chest x-ray: Radiologist's Impression: [address] [address] XRay Report Signed Patient: Veda Ybarra MR#: [id number] : 1995 Acct:[id number] Age/Sex: 26 / F Date of Service: 06/29/22 Loc: ED Accession Number: [id number] ?? Procedure: XR chest 2V Ordering Provider: Bradley Gonzalez D.O. PROCEDURE:? XR CHEST 2V ? INDICATIONS:? hx of PE with cough ? TECHNIQUE:? 2 views of the chest were acquired.? ? COMPARISON:? [facility], CT, CT ANGIO CHEST PE PROTOCOL, 06/27/2022, 15:12.? [facility], CR, XR CHEST 1V, 06/27/2022, 13:32. ? FINDINGS:? ? Surgical changes and devices:? None.? ? Lungs and pleura:? There are indistinct opacities in the lung bases bilaterally which are nonspecific but likely represent atelectasis.? No pleural effusions or pneumothorax.? ? Mediastinum:? Mediastinal contours are normal.? Heart size is normal.? ? Bones and chest wall:? No suspicious bony abnormalities.? Soft tissues appear unremarkable.? ? IMPRESSION:? ? 1. Indistinct opacities in the lung bases are nonspecific but likely represent atelectasis.? The differential includes atypical pneumonia. ? ? Dictated by: Wilver Chen M.D. on 06/30/2022 at 0:03 ? ? Approved by: Wilver Chen M.D. on 06/30/2022 at 0:05? ECG Data Attestation: I personally reviewed and interpreted this ECG as follows: Interpretation: Sinus tachycardia Ventricular rate of 109 Normal QRS Normal QTC No ST T wave changes MDM Narrative Medical decision making narrative: Patient is tachycardic but not hypoxic. Not tachypneic. No respiratory distress. Clear lung exam. Afebrile. Chest x-ray shows atelectasis. Low suspicion for pneumonia. No indication for antibiotics. She has been on Xarelto since her diagnosis. The shortness of breath on exertion has not worsened since she was here on Saturday. No indication for repeat CTA is I feel that worsening of her known pulmonary embolism is unlikely given that she has been on anticoagulation since the diagnosis. Patient is having some discomfort the left side of her neck but there are no skin changes. No masses. I do suspect that this is muscular. Her symptoms started this morning. I did have a discussion with her. Informed her that the dyspnea on exertion is not surprising that it has not change in this most likely will improve with time. She will continue with Xarelto. Unsure the exact etiology of her neck d iscomfort however do suspect musculoskeletal. Informed her that if she is worsening of this or any other skin changes or swelling or any other new symptoms that she should return for further evaluation. She expressed understanding and agreement. Discharge Plan Departure Patient Disposition: Home Clinical Impression: Pulmonary embolism, Cough Instructions: Cough Activity Restrictions/Additional Instructions: I do recommend that you continue to take the Xarelto as directed and also keep all of your scheduled medical appointments. Return to the emergency department for any new or worsening symptoms. Prescriptions: No Action norethindrone ac-eth estradiol [Microgestin 11/09 ()] 1-20 mg-mcg Tablet 1 tab PO QHS venlafaxine 75 mg capsule,extended release 24hr 150 mg PO DAILY doxycycline monohydrate 100 mg capsule 100 mg PO BID Qty: 14 0RF albuterol sulfate 90 mcg/actuation HFA aerosol inhaler 1 puff INHALATION Q4-6H PRN (Reason: shortness of breath or wheezing) Qty: 18 0RF fluticasone propionate [Flonase Allergy Relief] 50 mcg/actuation spray,suspension 1 spray NASAL DAILY Qty: 16 0RF Rx Instructions: administer into each nostril Xarelto DVT-PE Treat 30d Start 15 mg (42)- 20 mg (9) tablets,dose pack See Rx Instructions .ROUTE .COMPLEX Qty: 51 0RF Rx Instructions: take one-15 mg tablet twice daily for 21 days, then one-20 mg tablet once daily; must take with meal/food Referrals: Jaina Ortez ARNP [Primary Care Provider] - Visit Report Forms: Patient Portal/API
--- NOTE | 2022-06-29 22:27 | DI.RAD.S_ITS ---
PROCEDURE: XR CHEST 2V INDICATIONS: hx of PE with cough TECHNIQUE: 2 views of the chest were acquired. COMPARISON: [facility], CT, CT ANGIO CHEST PE PROTOCOL, 06/27/2022, 15:12. [facility], CR, XR CHEST 1V, 06/27/2022, 13:32. FINDINGS: Surgical changes and devices: None. Lungs and pleura: There are indistinct opacities in the lung bases bilaterally which are nonspecific but likely represent atelectasis. No pleural effusions or pneumothorax. Mediastinum: Mediastinal contours are normal. Heart size is normal. Bones and chest wall: No suspicious bony abnormalities. Soft tissues appear unremarkable. IMPRESSION: 1. Indistinct opacities in the lung bases are nonspecific but likely represent atelectasis. The differential includes atypical pneumonia. Dictated by: Wilver Chen M.D. on 06/30/2022 at 0:03 Approved by: Wilver Chen M.D. on 06/30/2022 at 0:05
[2022-06-29 22:39] LABS: Creatine Kinase 86 U/L (30-135)
[2022-06-29 22:52] LABS: Troponin I < 0.012 ng/mL (0.01-0.034)
[2022-06-30 00:32] VITALS: BP 161/78; PULSE 101; RESP 18; O2SAT 98
== END 2022-06-30 00:36 | disposition home or self-care (01) ==
PROVIDERS: Emergency Provider Emergency Medicine; PCP Nurse Practitioner Family
DX: I26.99 Other pulmonary embolism without acute cor pulmonale (principal); R05.9 Cough, unspecified
CPT/HCPCS: 71046; 80053; 82550; 83690; 83880; 84484; 85025; 85610; 85730; 93005; 93010; 99283; 99284